=== PATIENT | female | born 1980 | race Caucasian/White ===

== ENCOUNTER → 2021-04-25 | Outpatient (CLI) | payer BC, OTHER | LOC: MAMO 13:32 | DX: Z12.31 Encounter for screening mammogram for malignant neoplasm of breast (principal) | CPT/HCPCS: 77063; 77067 ==

== ENCOUNTER → 2021-05-22 | Outpatient (CLI) | payer BC | LOC: MAMO 14:30 | DX: R92.8 Other abnormal and inconclusive findings on diagnostic imaging of breast (principal) | CPT/HCPCS: 76641-LT; 76641-RT; 77065; G0279 ==

== ENCOUNTER → 2022-05-06 | Outpatient (CLI) | payer BC | LOC: US 10:00 → MAMO 10:15 → US 05-07 10:00 | DX: R92.8 Other abnormal and inconclusive findings on diagnostic imaging of breast (principal) | CPT/HCPCS: 76641-RT; 77063; 77067 ==

== ENCOUNTER → 2022-07-11 | Outpatient (CLI) | payer BC | LOC: LAB 09:50 | DX: R50.9 Fever, unspecified (principal); Z20.822 Contact with and (suspected) exposure to COVID-19 | CPT/HCPCS: U0002 ==